=== PATIENT | female | born 2000 | race African-American/Black ===

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

== ENCOUNTER 2021-02-02 17:13 | Emergency (ER) | payer OTHER ==
[2021-02-02 17:49] VITALS: BP 110/67; BMI 21.9
[2021-02-02] MEDS ORDERED: DIPHTH,PERTUSS(ACELL),TET 0.5 ML DISP.SYRIN IM ONE ×2 (18:45→18:46)
== END 2021-02-02 19:19 | disposition home or self-care (01) ==
LOC: JERFT 17:13
PROC: 3E0234Z Introduction of Serum, Toxoid and Vaccine into Muscle, Percutaneous Approach (ICD-10-PCS; principal; 2021-02-02)
DX: S61.411A Laceration without foreign body of right hand, initial encounter (principal); W26.8XXA Contact with other sharp object(s), not elsewhere classified, initial encounter
CPT/HCPCS: 73130-TC-RT-FY; 90471; 90715; 99283-25

== ENCOUNTER 2023-02-10 22:40 | Emergency (ER) | payer SELFPAY ==
[2023-02-10 22:53] VITALS: BP 102/56; PULSE 69; RESP 18; TEMP 97.8; BMI 23.8
[2023-02-11] MEDS ORDERED: IBUPROFEN 600 MG TABLET (FP) PO ONE ×2 (03:10→03:19)
== END 2023-02-11 03:29 | disposition home or self-care (01) ==
LOC: JER 22:40 → JERFT 22:40 → JER 02-11 03:29
DX: H57.89 Other specified disorders of eye and adnexa (principal); R22.0 Localized swelling, mass and lump, head; R51.9 Headache, unspecified
CPT/HCPCS: 70450-TC; 70486-TC; 84703; 99284-25